=== PATIENT | male | born 1990 | race Caucasian/White ===

== ENCOUNTER → 2024-07-30 | Outpatient (CLI) | payer OTHER | LOC: M OUTALCOH 07:54 | PROVIDERS: ATTEND Psychiatry & Neurology Psychiatry | DX: F10.10 Alcohol abuse, uncomplicated (principal); F12.10 Cannabis abuse, uncomplicated ==

== ENCOUNTER 2024-10-31 10:24 | Outpatient (RCR) | payer OTHER | END 2024-11-01 | LOC: M OUTALCOH 10:24 | PROVIDERS: ATTEND Psychiatry & Neurology Psychiatry | DX: F10.10 Alcohol abuse, uncomplicated (principal); F12.10 Cannabis abuse, uncomplicated ==

== ENCOUNTER 2024-11-21 08:00 | Outpatient (RCR) | payer OTHER | END 2024-12-02 | LOC: M OUTALCOH 08:00 | PROVIDERS: ATTEND Psychiatry & Neurology Psychiatry | DX: F10.10 Alcohol abuse, uncomplicated (principal); F12.10 Cannabis abuse, uncomplicated ==